=== PATIENT | female | born 1960 | race Caucasian/White ===

== ENCOUNTER 2018-09-30 12:35 | Inpatient (IN) | payer OTHER ==
[2018-09-30] MEDS: ONDANSETRON 4 MG INJ IV (15:52)
[2018-09-30] MEDS: KETOROLAC 15 MG INJ IV (15:52)
[2018-09-30] MEDS: SOD CHLORIDE 0.9% 1,000 ML IV ×2 (15:52→23:00)
[2018-09-30 16:19] LABS: ADD MAN DIFF? NO
[2018-09-30 16:21] LABS: WHITE BLOOD COUNT 10.2 10^3/ul (4.8-10.8)
[2018-09-30 16:21] LABS: BASOPHILS % 0.2 % (0.0-2.0); HEMATOCRIT 38.9 % (37.0-47.0); HEMOGLOBIN 13.2 g/dl (12.0-16.0); LYMPHOCYTES # 1.3 10^3/ul (0.8-2.9); LYMPHOCYTES % 12.8 % (15.0-51.0); MEAN CORPUSCULAR HEMOGLOBIN 27.6 pg (29.0-33.0); MEAN CORPUSCULAR HGB CONC 33.9 g/dl (32.0-37.0); MEAN CORPUSCULAR VOLUME 81.4 fl (82.0-101.0); MEAN PLATELET VOLUME 10.8 fl (7.4-10.4); MONOCYTE # 0.3 10^3/ul (0.3-0.9); NEUTROPHIL # 8.6 10^3/ul (1.6-7.5); NEUTROPHILS % 83.6 % (39.0-77.0); PLATELET COUNT 235 10^3/UL (140-415); RED BLOOD COUNT 4.78 10^6/ul (4.20-5.40); RED CELL DISTRIBUTION WIDTH 12.4 % (11.5-14.5)
[2018-09-30 16:27] LABS: ALANINE AMINOTRANSFERASE 43 IU/L (13-69); ALBUMIN 4.5 g/dl (3.3-4.9); ALBUMIN/GLOBULIN RATIO 1.18; ALKALINE PHOSPHATASE 168 IU/L (42-121); ANION GAP 12 (5-13); ASPARTATE AMINO TRANSFERASE 25 IU/L (15-46); BILIRUBIN,INDIRECT 0.4 mg/dl (0-1.1); BILIRUBIN,TOTAL 0.4 mg/dl (0.2-1.3); BLOOD UREA NITROGEN 15 mg/dl (7-20); CALCIUM 9.4 mg/dl (8.4-10.2); CARBON DIOXIDE 27 mmol/L (21-31); CHLORIDE 102 mmol/L (97-110); CREATININE 0.52 mg/dl (0.44-1.00); Estimated GFR > 60 mL/min (>60); GLUCOSE 117 mg/dl (70-220); LIPASE 38 U/L (23-300); POTASSIUM 4.1 mmol/L (3.5-5.1); SODIUM 141 mmol/L (135-144); TOTAL PROTEIN 8.3 g/dl (6.1-8.1)
[2018-09-30 16:38] LABS: TROPONIN-I < 0.012 ng/ml (0.000-0.120)
[2018-09-30 17:23] LABS: ADD UMIC YES; UR ASCORBIC ACID NEGATIVE (NEGATIVE); UR BACTERIA FEW /HPF (NONE SEEN); UR BILIRUBIN (Dip) NEGATIVE (NEGATIVE); UR BLOOD (Dip) NEGATIVE (NEGATIVE); UR CLARITY CLOUDY (CLEAR); UR COLOR YELLOW (YELLOW); UR GLUCOSE (Dip) NEGATIVE (NEGATIVE); UR KETONES (Dip) NEGATIVE (NEGATIVE); UR LEUKOCYTE ESTERASE (Dip) NEGATIVE Leu/ul (NEGATIVE); UR MUCUS MANY /HPF (NONE SEEN); UR NITRITE (Dip) NEGATIVE (NEGATIVE); UR RBC 3 /HPF (0-5); UR SPECIFIC GRAVITY (Dip) 1.021 (1.003-1.030); UR SQUAMOUS EPITHELIAL CELL FEW /HPF (FEW); UR TOTAL PROTEIN (Dip) 2+ mg/dl (NEGATIVE); UR UROBILINOGEN (Dip) NEGATIVE (NEGATIVE); UR WBC 5 /HPF (0-5)
[2018-09-30] MEDS: CEFTRIAXONE 1 GM/50 ML (PMX) 50 ML IVPB (18:12)
[2018-10-01] MEDS: LEVOTHYROXINE 88 MCG TAB PO (06:09)
[2018-10-01] MEDS: ACETAMINOPHEN 325 MG TAB PO ×3 (07:51→22:45)
[2018-10-01] MEDS: NIFEdipine (XL) 30 MG TAB PO ×3 (08:11→21:25)
[2018-10-01] MEDS: LISINOPRIL 20 MG TAB PO ×2 (08:12→21:28)
[2018-10-01] MEDS: PREDNISOLONE ACET 1% 5 ML OPH BOTH EYES ×4 (08:13→21:25)
[2018-10-01 08:49] LABS: ADD MAN DIFF? NO
[2018-10-01 08:55] LABS: WHITE BLOOD COUNT 7.4 10^3/ul (4.8-10.8)
[2018-10-01 08:55] LABS: BASOPHILS % 0.3 % (0.0-2.0); EOSINOPHILS % 0.5 % (0.0-7.0); HEMATOCRIT 35.7 % (37.0-47.0); HEMOGLOBIN 11.9 g/dl (12.0-16.0); LYMPHOCYTES # 2.6 10^3/ul (0.8-2.9); LYMPHOCYTES % 35.2 % (15.0-51.0); MEAN CORPUSCULAR HEMOGLOBIN 27.6 pg (29.0-33.0); MEAN CORPUSCULAR HGB CONC 33.3 g/dl (32.0-37.0); MEAN CORPUSCULAR VOLUME 82.8 fl (82.0-101.0); MEAN PLATELET VOLUME 10.6 fl (7.4-10.4); MONOCYTE # 0.5 10^3/ul (0.3-0.9); MONOCYTES % 7.2 % (0.0-11.0); NEUTROPHIL # 4.2 10^3/ul (1.6-7.5); NEUTROPHILS % 56.5 % (39.0-77.0); PLATELET COUNT 218 10^3/UL (140-415); RED BLOOD COUNT 4.31 10^6/ul (4.20-5.40); RED CELL DISTRIBUTION WIDTH 12.7 % (11.5-14.5)
[2018-10-01 09:57] LABS: ALANINE AMINOTRANSFERASE 31 IU/L (13-69); ALBUMIN 3.8 g/dl (3.3-4.9); ALBUMIN/GLOBULIN RATIO 1.18; ALKALINE PHOSPHATASE 140 IU/L (42-121); ANION GAP 8 (5-13); ASPARTATE AMINO TRANSFERASE 20 IU/L (15-46); BILIRUBIN,INDIRECT 0.4 mg/dl (0-1.1); BILIRUBIN,TOTAL 0.4 mg/dl (0.2-1.3); BLOOD UREA NITROGEN 18 mg/dl (7-20); CALCIUM 8.9 mg/dl (8.4-10.2); CARBON DIOXIDE 25 mmol/L (21-31); CHLORIDE 108 mmol/L (97-110); CREATININE 0.59 mg/dl (0.44-1.00); Estimated GFR > 60 mL/min (>60); GLUCOSE 95 mg/dl (70-220); POTASSIUM 3.9 mmol/L (3.5-5.1); SODIUM 141 mmol/L (135-144)
[2018-10-01] MEDS: hydrALAzine 20 MG INJ IV (11:44)
[2018-10-01] MEDS ORDERED: GLUCAGON 1 MG INJ IM (14:30)
[2018-10-01] MEDS ORDERED: DEXTROSE 50% 50 ML SYRINGE IV ×2 (14:30)
[2018-10-01] MEDS ORDERED: GLUCOSE GEL 15 GRAM TUBE BUCCAL (14:30)
[2018-10-01] MEDS ORDERED: GLUCOSE GEL 15 GRAM TUBE PO ×2 (14:30)
[2018-10-01 14:44] LABS: THYROID STIMULATING HORMONE 0.474 MIU/L (0.465-4.680)
[2018-10-01] MEDS ORDERED: LORAZEPAM 2 MG INJ IV (16:30)
[2018-10-01] MEDS ORDERED: ONDANSETRON 4 MG INJ IV (16:30)
[2018-10-01] MEDS: INSULIN ASPART [NOVOLOG] 3 ML PEN SC ×2 (17:48→21:00)
[2018-10-01] MEDS: CEFTRIAXONE 1 GM/50 ML (PMX) 50 ML IVPB (18:14)
[2018-10-01] MEDS: ATORVASTATIN 10 MG TAB PO (21:26)
[2018-10-02] MEDS: ACCU-CHEK XX (02:00)
[2018-10-02] MEDS: ACETAMINOPHEN 325 MG TAB PO (02:10)
[2018-10-02] MEDS: LEVOTHYROXINE 88 MCG TAB PO (07:10)
[2018-10-02] MEDS: INSULIN ASPART [NOVOLOG] 3 ML PEN SC ×4 (07:52→21:00)
[2018-10-02] MEDS: PREDNISOLONE ACET 1% 5 ML OPH BOTH EYES ×4 (08:07→21:00)
[2018-10-02] MEDS: NIFEdipine (XL) 30 MG TAB PO ×2 (08:14→21:01)
[2018-10-02] MEDS: LISINOPRIL 20 MG TAB PO ×2 (08:15→21:01)
[2018-10-02 14:33] LABS: FREE T3 2.57 pg/ml (2.77-5.27); FREE T4 (FREE THYROXINE) 1.21 ng/dl (0.64-1.79)
[2018-10-02 15:14] LABS: ADD UMIC NO; UR ASCORBIC ACID NEGATIVE (NEGATIVE); UR BILIRUBIN (Dip) NEGATIVE (NEGATIVE); UR BLOOD (Dip) NEGATIVE (NEGATIVE); UR CLARITY CLEAR (CLEAR); UR COLOR YELLOW (YELLOW); UR GLUCOSE (Dip) NEGATIVE (NEGATIVE); UR KETONES (Dip) NEGATIVE (NEGATIVE); UR LEUKOCYTE ESTERASE (Dip) NEGATIVE Leu/ul (NEGATIVE); UR NITRITE (Dip) NEGATIVE (NEGATIVE); UR TOTAL PROTEIN (Dip) NEGATIVE (NEGATIVE); UR UROBILINOGEN (Dip) NEGATIVE (NEGATIVE)
[2018-10-02] MEDS: CEFTRIAXONE 1 GM/50 ML (PMX) 50 ML IVPB (17:34)
[2018-10-02] MEDS: ATORVASTATIN 10 MG TAB PO (21:01)
[2018-10-03] MEDS: ACCU-CHEK XX (02:00)
[2018-10-03] MEDS: LEVOTHYROXINE 88 MCG TAB PO (06:22)
[2018-10-03] MEDS: INSULIN ASPART [NOVOLOG] 3 ML PEN SC ×2 (07:46→11:50)
[2018-10-03] MEDS: LISINOPRIL 20 MG TAB PO (08:41)
[2018-10-03] MEDS: NIFEdipine (XL) 30 MG TAB PO (08:41)
[2018-10-03] MEDS: PREDNISOLONE ACET 1% 5 ML OPH BOTH EYES ×2 (08:42→13:18)
[2018-10-03 08:45] LABS: HEMOGLOBIN A1C 5.8 % (0-5.9)
== END 2018-10-03 17:50 | disposition home or self-care (01) | DRG 690 ==
LOC: E/R 12:35 → TEL 20:13
DX: N39.0 Urinary tract infection, site not specified (principal); R00.1 Bradycardia, unspecified; E03.9 Hypothyroidism, unspecified; E11.9 Type 2 diabetes mellitus without complications; E78.00 Pure hypercholesterolemia, unspecified; I10 Essential (primary) hypertension; E78.5 Hyperlipidemia, unspecified; R51 Headache; M19.90 Unspecified osteoarthritis, unspecified site; E86.0 Dehydration; R11.2 Nausea with vomiting, unspecified; M06.9 Rheumatoid arthritis, unspecified; Z79.4 Long term (current) use of insulin; Z98.42 Cataract extraction status, left eye
CPT/HCPCS: 36415; 70450; 71045; 80053; 81001; 81003; 82962; 83036; 83690; 84439; 84443; 84481; 84484; 85025; 87086; 93005; 93306; 96374; 96375; 99285-25